=== PATIENT | female | born 1985 | race Caucasian/White ===

== ENCOUNTER 2025-02-17 13:15 | Outpatient (CLI) | payer OTHER, SELFPAY ==
--- NOTE | 2025-02-26 14:47 | W.PM.SLEEP ---
Sleep Study Details Details Interpreting Provider: Lily Date of Sleep Study: February 17, 2025 Sleep Study Details: STUDY TYPE:? Home unattended ? BMI:? Not recorded ORDERING PROVIDER:? Lily INDICATION:? Concern for sleep apnea ? SLEEP SUMMARY:? 328 minutes monitored RESPIRATORY SUMMARY:? AHI 14.1 per rule 1 8, 6.4 per CMS guideline Low oxygen 87 5.1% of study oxygen less than 90% Snoring 100% PERIODIC LIMB MOVEMENTS OF SLEEP:? Not recorded CARDIAC:? Range 65-104, mean 75.3 beats per minute IMPRESSION:? Mild obstructive sleep apnea with significant desaturations RECOMMENDATION: Treatment options include CPAP, dental appliance and/or airway expansion surgery.
== END 2025-02-17 13:16 | disposition home or self-care (01) ==
LOC: SLEEP 03-10 11:57
PROVIDERS: Visit Provider Otolaryngology
DX: G47.33 Obstructive sleep apnea (adult) (pediatric) (principal)
CPT/HCPCS: 95806